=== PATIENT | male | born 1960 ===

== ENCOUNTER 2018-08-07 07:55 | Outpatient (CLI) | payer OTHER | END 2018-08-07 07:56 | disposition home or self-care (01) | LOC: C.USIC 07:55 ==

== ENCOUNTER 2018-08-14 07:38 | Outpatient (CLI) | payer OTHER | END 2018-08-14 07:39 | disposition home or self-care (01) | LOC: C.LAB 07:38 | DX: B18.2 Chronic viral hepatitis C (principal) ==